=== PATIENT | female | born 1995 | race American Indian/Alaskan Native ===

== ENCOUNTER 2019-07-19 20:40 | Emergency (ER) | payer MEDICARE ==
[2019-07-19 21:14] VITALS: BP 132/83
--- NOTE | 2019-07-20 03:26 | Emergency Department Report ---
- General Chief Complaint: Upper Respiratory Infection Stated Complaint: NASAL CONGESTION Time Seen by Provider: 07/20/19 03:07 Source: patient Mode of arrival: Ambulatory Limitations: No Limitations - History of Present Illness Initial Comments: 24-year-old female presents to the ER this morning complaining of nasal congestion, sinus pressure, rhinorrhea, and mild productive cough for the past 2 weeks. She reports associated sinus pressure and itchy throat. She denies any fever or chills. She denies any obvious ill contacts. She reports no other symptoms at this time. MD Complaint: cough, rhinorrhea, nasal congestion, sinus pain -: week(s) (2) - Related Data Previous Rx's Medication Instructions Recorded Last Taken Type Amoxicillin [Trimox CAP] 500 mg PO Q8H #30 capsule 07/20/19 Unknown Rx Cetirizine HCl/Pseudoephedrine 1 each PO BID #20 tab.er.12h 07/20/19 Unknown Rx [Zyrtec-D Tablet] Fluticasone [Flonase] 2 spray NS QDAY #1 bottle 07/20/19 Unknown Rx Allergies Allergy/AdvReac Type Severity Reaction Status Date / Time No Known Allergies Allergy Unverified 07/19/19 21:13 ED Review of Systems ROS: Stated complaint: NASAL CONGESTION Other details as noted in HPI Constitutional: denies: chills, fever ENT: congestion, other (Rhinorrhea). denies: ear pain, throat pain Respiratory: cough. denies: shortness of breath, SOB with exertion, SOB at rest, wheezing Cardiovascular: denies: chest pain Gastrointestinal: denies: abdominal pain, nausea, vomiting, diarrhea Genitourinary: denies: urgency, dysuria, frequency, hematuria, discharge Skin: denies: rash Neurological: denies: headache, weakness ED Past Medical Hx - Past Medical History Previous Medical History?: No - Surgical History Past Surgical History?: No - Social History Smoking Status: Current Every Day Smoker Substance Use Type: Marijuana - Medications Home Medications: Home Medications Medication Instructions Recorded Confirmed Last Taken Type Amoxicillin [Trimox CAP] 500 mg PO Q8H #30 capsule 07/20/19 Unknown Rx Cetirizine HCl/Pseudoephedrine 1 each PO BID #20 tab.er.12h 07/20/19 Unknown Rx [Zyrtec-D Tablet] Fluticasone [Flonase] 2 spray NS QDAY #1 bottle 07/20/19 Unknown Rx ED Physical Exam - General Limitations: No Limitations General appearance: alert, in no apparent distress - Head Head exam: Present: atraumatic, normocephalic, normal inspection - Eye Eye exam: Present: normal appearance, PERRL, EOMI Pupils: Present: normal accommodation - ENT ENT exam: Present: normal orophraynx, mucous membranes dry - Expanded ENT Exam Expanded TM/Canal exam: Effusion: Right TM, Left TM - Neck Neck exam: Present: normal inspection, lymphadenopathy. Absent: meningismus, full ROM - Respiratory Respiratory exam: Present: normal lung sounds bilaterally. Absent: respiratory distress, wheezes - Cardiovascular Cardiovascular Exam: Present: regular rate, normal rhythm, normal heart sounds - GI/Abdominal GI/Abdominal exam: Present: soft. Absent: distended - Neurological Exam Neurological exam: Present: alert, oriented X3, CN II-XII intact, normal gait - Psychiatric Psychiatric exam: Present: normal affect, normal mood - Skin Skin exam: Present: intact ED Course Vital Signs 07/19/19 21:05 Temperature 98.1 F Pulse Rate 116 H Respiratory 18 Rate Blood Pressure 132/83 O2 Sat by Pulse 98 Oximetry ED Medical Decision Making - Medical Decision Making Patient presents to ER today complaining of URI symptoms for 2 weeks. She is currently resting comfortably and is in no acute distress. She has normal mental status and is neurologically intact. She appears well and there is no signs of any significant dehydration. There is no respiratory distress or any signs of systemic toxicity. The history/exam and current condition does not demonstrate any significant infectious process such as meningitis, severe pneumonia, retropharyngeal abscess, epiglottitis, sepsis or other serious bacterial infection requiring any testing, treatment, consultation or admission at this time. She is mildly tachycardic, but otherwise her vital signs are normal. The patient's condition is stable and she is appropriate for discharge. Discussed suspected diagnosis and treatment plan with patient. Recommend follow-up with PCP. But she understands to return if any worse. Critical care attestation.: If time is entered above; I have spent that time in minutes in the direct care of this critically ill patient, excluding procedure time. ED Disposition Clinical Impression: Sinusitis Disposition: - TO HOME OR SELFCARE Is pt being admited?: No Does the pt Need Aspirin: No Condition: Stable Instructions: Sinusitis (ED) Prescriptions: Fluticasone [Flonase] 2 spray NS QDAY #1 bottle Amoxicillin [Trimox CAP] 500 mg PO Q8H #30 capsule Cetirizine HCl/Pseudoephedrine [Zyrtec-D Tablet] 1 each PO BID #20 tab.er.12h Referrals: MIKE WOODS MD [Staff Physician] - 3-5 Days Time of Disposition: 03:51
[2019-07-20] MEDS ORDERED: OXYMETAZOLINE 0.05% NASAL SPRAY NS ONE (03:45)
== END 2019-07-20 04:09 | disposition home or self-care (01) ==
LOC: ED 20:40
DX: J32.9 Chronic sinusitis, unspecified (principal); F17.200 Nicotine dependence, unspecified, uncomplicated; F12.10 Cannabis abuse, uncomplicated
CPT/HCPCS: 99282